=== PATIENT | female | born 1970 | race Caucasian/White ===

== ENCOUNTER 2025-01-16 10:58 | Emergency (ER) | payer SELFPAY ==
[2025-01-16 11:16] VITALS: BP 126/79; PULSE 79; RESP 16; TEMP 36.8; O2SAT 100; BMI 24.1
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
[2025-01-16 12:40] VITALS: BP 126/77; PULSE 77; O2SAT 99
== END 2025-01-16 12:41 | disposition home or self-care (01) ==
PROVIDERS: Emergency Provider Emergency Medicine
DX: S86.002A Unspecified injury of left Achilles tendon, initial encounter (principal); X58.XXXA Exposure to other specified factors, initial encounter
CPT/HCPCS: 73610; 99283; E0114